=== PATIENT | female | born 1990 | race Caucasian/White ===

== ENCOUNTER 2017-04-26 18:36 | Emergency (ER) | payer BC, OTHER ==
[2017-04-26 18:46] VITALS: TEMP 97.9; O2SAT 99
--- NOTE | 2017-04-26 18:49 | EDPHY ---
H & P Stated Complaint: etoh last night/anxiety nausea today Time Seen by Provider: 04/26/17 18:48 HPI/ROS: CHIEF COMPLAINT: Vomiting, anxiety HISTORY OF PRESENT ILLNESS: The patient presents to the ED with a 1 day history of vomiting and anxiety. The patient reports her symptoms were precipitated by drinking alcohol last night. She denies significant abdominal pain. She denies any hematemesis or melena. She does have a history of anxiety but does not take medications for this condition. The patient denies any complaints of fever, cough, congestion or dysuria. The patient states that her symptoms of anxiety are moderate in nature. REVIEW OF SYSTEMS: A comprehensive 10 point review of systems is otherwise negative aside from elements mentioned in the history of present illness. Source: Patient Exam Limitations: No limitations - Personal History LMP (Females 10-55): IUD In Place Current Tetanus/Diphtheria Vaccine: No - Medical/Surgical History Hx Asthma: No Hx Chronic Respiratory Disease: No Hx Diabetes: No Hx Cardiac Disease: No Hx Renal Disease: No Hx Cirrhosis: No Hx Alcoholism: No Hx HIV/AIDS: No Hx Splenectomy or Spleen Trauma: No Other PMH: anxiety - Social History Smoking Status: Current some day smoker - Physical Exam Exam: General Appearance: Alert, no distress Eyes: Pupils equal and round no pallor or injection ENT, Mouth: Dry mucous membranes Respiratory: There are no retractions, lungs are clear to auscultation Cardiovascular: Tachycardic Gastrointestinal: Minimal epigastric tenderness Neurological: A&O, normal motor function, normal sensory exam, normal cranial nerves Skin: Warm and dry, no rashes Musculoskeletal: Neck is supple nontender Extremities: symmetrical, full range of motion Psychiatric: Patient is oriented X 3, there is no agitation, anxious and hyperventilating Constitutional: Initial Vital Signs Temperature (C) 36.6 C 04/26/17 18:44 Heart Rate 118 H 04/26/17 18:44 Respiratory Rate 22 H 04/26/17 18:44 Blood Pressure 119/91 H 04/26/17 18:44 O2 Sat (%) 99 04/26/17 18:44 O2 Delivery Mode Room Air Allergies/Adverse Reactions: Sulfa (Sulfonamide Antibiotics) Allergy (Verified 04/26/17 18:43) Home Medications: Medication Instructions Recorded Janice 04/26/17 Medical Decision Making ED Course/Re-evaluation: The patient presents to the ED with vomiting and anxiety in the setting of recent alcohol use. The patient was clinically dehydrated upon arrival with dry mucous membranes and tachycardia. This is confirmed reflected in her low carbon dioxide of 12. The patient has a benign abdominal examination. She had an IV established. She received 2 L of normal saline, 4 mg of IV Zofran and 1 mg of IV Ativan. I re-evaluated the patient at 8:10 p.m.. She is currently feeling much better and has no acute complaints. Her abdominal examination is benign. She is tolerating p.o. without recurrent nausea and vomiting. The patient will be discharged home without further workup. She is given customary aftercare instructions and return precautions. Differential Diagnosis: Differential diagnosis considered includes alcoholic gastritis, dehydration, anxiety, metabolic abnormality, pancreatitis - Data Points Laboratory Results: Laboratory Results 04/26/17 19:00 04/26/17 19:00 04/26/17 04/26/17 04/26/17 19:00 19:00 19:00 WBC 16.15 10^3/uL H 10^3/uL (3.80-9.50) RBC 5.15 10^6/uL 10^6/uL (4.18-5.33) Hgb 15.6 g/dL g/dL (12.6-16.3) Hct 43.0 % % (38.0-47.0) MCV 83.5 fL fL (81.5-99.8) MCH 30.3 pg pg (27.9-34.1) MCHC 36.3 g/dL g/dL (32.4-36.7) RDW 11.4 % L % (11.5-15.2) Plt Count 329 10^3/uL 10^3/uL (150-400) MPV 8.4 fL L fL (8.7-11.7) Neut % (Auto) 88.0 % H % (39.3-74.2) Lymph % (Auto) 7.9 % L % (15.0-45.0) [place] % (Auto) 2.8 % L % (4.5-13.0) Eos % (Auto) 0.2 % L % (0.6-7.6) Baso % (Auto) 0.6 % % (0.3-1.7) Nucleat RBC Rel Count 0.0 % % (0.0-0.2) Absolute Neuts (auto) 14.22 10^3/uL H 10^3/uL (1.70-6.50) Absolute Lymphs (auto) 1.27 10^3/uL 10^3/uL (1.00-3.00) Absolute Monos (auto) 0.45 10^3/uL 10^3/uL (0.30-0.80) Absolute Eos (auto) 0.03 10^3/uL 10^3/uL (0.03-0.40) Absolute Basos (auto) 0.10 10^3/uL 10^3/uL (0.02-0.10) Absolute Nucleated RBC 0.00 10^3/uL 10^3/uL (0-0.01) Immature Gran % 0.5 % % (0.0-1.1) Immature Gran # 0.08 10^3/uL 10^3/uL (0.00-0.10) Sodium 143 mEq/L mEq/L (134-144) Potassium 4.4 mEq/L mEq/L (3.5-5.2) Chloride 103 mEq/L mEq/L (97-110) Carbon Dioxide 12 mEq/l L mEq/l (22-31) Anion Gap 28 mEq/L H mEq/L (8-16) BUN 9 mg/dL mg/dL (7-23) Creatinine 0.6 mg/dL mg/dL (0.6-1.0) Estimated GFR > 60 Glucose 102 mg/dL H mg/dL (70-100) Calcium 10.7 mg/dL H mg/dL (8.5-10.4) Phosphorus 2.6 mg/dL mg/dL (2.5-4.5) Beta HCG, Qual NEGATIVE Medications Given: Discontinued Medications Sodium Chloride (Ns) 1,000 mls @ 0 mls/hr IV EDNOW ONE; Wide Open PRN Reason: Protocol Stop: 04/26/17 18:52 Last Admin: 04/26/17 19:00 Dose: 1,000 mls Sodium Chloride (Ns) 1,000 mls @ 0 mls/hr IV EDNOW ONE; Wide Open PRN Reason: Protocol Stop: 04/26/17 18:52 Last Admin: 04/26/17 19:02 Dose: Not Given Lorazepam (Ativan Injection) 1 mg IVP EDNOW ONE Stop: 04/26/17 18:52 Last Admin: 04/26/17 19:01 Dose: 1 mg Departure - Departure Disposition: Home, Routine, Self-Care Clinical Impression: Vomiting, Dehydration, Anxiety Condition: Good Instructions: Acute Nausea and Vomiting (ED) Additional Instructions: 1. Return to the ED for any pain, intractable vomiting or other concerns. Referrals: NONE *PRIMARY CARE P,. [Primary Care Provider] - As per Instructions
[2017-04-26] MEDS ORDERED: LORazepam 2 MG/ML INJ IVP ONE (18:51)
[2017-04-26] MEDS ORDERED: NS 1,000 ML IV ONE (18:51)
[2017-04-26] MEDS: NS 1,000 ML IV ONE (19:00)
[2017-04-26 19:10] LABS: PLATELET COUNT 329 10^3/uL (150-400)
[2017-04-26 19:54] VITALS: BP 119/65; PULSE 112; RESP 18
== END 2017-04-26 20:18 | disposition home or self-care (01) ==
DX: R11.10 Vomiting, unspecified (principal); E86.0 Dehydration; F41.9 Anxiety disorder, unspecified; F17.200 Nicotine dependence, unspecified, uncomplicated; E86.9 Volume depletion, unspecified
CPT/HCPCS: 96374; J2060

== ENCOUNTER 2018-08-31 07:09 | Emergency (ER) | payer BC ==
--- NOTE | 2018-08-31 07:26 | EDPHY ---
H & P Time Seen by Provider: 08/31/18 07:25 HPI/ROS: CHIEF COMPLAINT: Nausea and anxiety HISTORY OF PRESENT ILLNESS: Patient is seen here for similar on 04/26/2017. She has been seen since then at [facility] for similar. Her friend who is here with her relates that she had been drinking alcohol last night until about midnight, since about 3:30 a.m. She has had anxiety and nausea and vomiting and hyperventilation not helped by talking to her. Seems identical to previous episodes. Patient denies diarrhea or abdominal pain. No hematemesis or coffee-ground emesis. Symptoms severe. Not associated with shortness of breath. REVIEW OF SYSTEMS: Eye: no change in vision ENT: no sore throat Cardiac: no chest pain or syncope Pulmonary: no cough or SOB Abdomen: HPI Musculoskeletal: no back pain Skin: no rash Neuro: no headache Constitutional: no fever : no urinary symptoms A comprehensive 10 point review of systems is otherwise negative aside from elements mentioned in the history of present illness. PAST MEDICAL HISTORY: No previous abdominal surgeries, denies Social history: Alcohol last night General Appearance: Alert and conversant, cooperative. Eyes: No scleral icterus. ENT, Mouth: Dry mucous membranes. Respiratory: Normal respiratory effort, breath sounds equal, lungs are clear to auscultation. Cardiovascular: Regular rate and rhythm. Gastrointestinal: Abdomen is soft and non tender. Neurological: Alert, face symmetric, normal motor and sensory in extremities. Skin: Warm and dry, no rashes. Musculoskeletal: No peripheral edema. Psychiatric: Moderately anxious and hyperventilating. Emergency Department course/MDM: Normal saline 1 L, IV Ativan 1 mg, CBC chemistry . Temperature 36 degrees. 840: Sleeping quietly, no further vomiting, appears calm. 921: Easily awakened, taking oral fluids, less anxious, no further vomiting. Smoking Status: Current some day smoker Constitutional: Initial Vital Signs Heart Rate 131 H 08/31/18 07:13 Respiratory Rate 30 H 08/31/18 07:13 Blood Pressure 115/83 H 08/31/18 07:13 O2 Sat (%) 97 08/31/18 07:13 O2 Delivery Mode Room Air Allergies/Adverse Reactions: Sulfa (Sulfonamide Antibiotics) Allergy (Verified 08/31/18 07:12) Home Medications: Medication Instructions Recorded Unobtainable 08/31/18 Medical Decision Making Differential Diagnosis: Differential diagnosis considered for nausea and vomiting including but not limited to gastroenteritis, gastritis, appendicitis, and medication side effect. - Data Points Laboratory Results: Laboratory Results 08/31/18 07:45 08/31/18 07:45 08/31/18 08/31/18 08/31/18 07:45 07:45 07:45 WBC 10.04 10^3/uL H 10^3/uL (3.80-9.50) RBC 5.48 10^6/uL H 10^6/uL (4.18-5.33) Hgb 16.7 g/dL H g/dL (12.6-16.3) Hct 47.2 % H % (38.0-47.0) MCV 86.1 fL fL (81.5-99.8) MCH 30.5 pg pg (27.9-34.1) MCHC 35.4 g/dL g/dL (32.4-36.7) RDW 12.8 % % (11.5-15.2) Plt Count 270 10^3/uL 10^3/uL (150-400) MPV 8.2 fL L fL (8.7-11.7) Neut % (Auto) 75.7 % H % (39.3-74.2) Lymph % (Auto) 17.1 % % (15.0-45.0) [place] % (Auto) 1.9 % L % (4.5-13.0) Eos % (Auto) 3.8 % % (0.6-7.6) Baso % (Auto) 0.9 % % (0.3-1.7) Nucleat RBC Rel Count 0.0 % % (0.0-0.2) Absolute Neuts (auto) 7.60 10^3/uL H 10^3/uL (1.70-6.50) Absolute Lymphs (auto) 1.72 10^3/uL 10^3/uL (1.00-3.00) Absolute Monos (auto) 0.19 10^3/uL L 10^3/uL (0.30-0.80) Absolute Eos (auto) 0.38 10^3/uL 10^3/uL (0.03-0.40) Absolute Basos (auto) 0.09 10^3/uL 10^3/uL (0.02-0.10) Absolute Nucleated RBC 0.00 10^3/uL 10^3/uL (0-0.01) Immature Gran % 0.6 % % (0.0-1.1) Immature Gran # 0.06 10^3/uL 10^3/uL (0.00-0.10) Sodium 145 mEq/L mEq/L (135-145) Potassium 4.3 mEq/L mEq/L (3.5-5.2) Chloride 109 mEq/L mEq/L (97-110) Carbon Dioxide 13 mEq/l L mEq/l (22-31) Anion Gap 23 mEq/L H mEq/L (6-14) BUN 13 mg/dL mg/dL (7-23) Creatinine 0.7 mg/dL mg/dL (0.6-1.0) Estimated GFR > 60 Glucose 72 mg/dL mg/dL (70-100) Calcium 9.9 mg/dL mg/dL (8.5-10.4) Beta HCG, Qual NEGATIVE Medications Given: Discontinued Medications Sodium Chloride (Ns) 1,000 mls @ 0 mls/hr IV EDNOW ONE; Wide Open PRN Reason: Protocol Stop: 08/31/18 07:32 Last Admin: 08/31/18 07:54 Dose: 1,000 mls Lorazepam (Ativan Injection) 1 mg IVP EDNOW ONE Stop: 08/31/18 07:32 Last Admin: 08/31/18 07:54 Dose: 1 mg Departure - Departure Disposition: Home, Routine, Self-Care Clinical Impression: Anxiety Nausea and vomiting Qualifiers: Vomiting type: unspecified Vomiting Intractability: non-intractable Qualified Code(s): R11.2 - Nausea with vomiting, unspecified Condition: Good Instructions: Generalized Anxiety Disorder (ED), Acute Nausea and Vomiting (ED) Referrals: Moiéss Pope MD [Primary Care Provider] - As per Instructions
[2018-08-31] MEDS ORDERED: NS 1,000 ML IV ONE (07:31)
[2018-08-31] MEDS ORDERED: LORazepam 2 MG/ML INJ IVP ONE (07:31)
[2018-08-31 07:56] LABS: PLATELET COUNT 270 10^3/uL (150-400)
[2018-08-31 09:15] VITALS: BP 100/60
== END 2018-08-31 09:31 | disposition home or self-care (01) ==
DX: F41.1 Generalized anxiety disorder (principal); R11.2 Nausea with vomiting, unspecified; E86.9 Volume depletion, unspecified; F17.200 Nicotine dependence, unspecified, uncomplicated
CPT/HCPCS: 96374; J2060

== ENCOUNTER 2018-09-13 10:30 | Emergency (ER) | payer BC ==
--- NOTE | 2018-09-13 10:39 | EDPHY ---
General Time Seen by Provider: 09/13/18 10:39 Narrative: CLINICAL IMPRESSION: Anxiety, nausea, vomiting ASSESSMENT/PLAN: Patient is a 27 year old female with a significant medical history of anxiety who presents to the emergency department with complaints of increased anxiety, nausea, vomiting and generalized abdominal pain. Patient is afebrile, she is hyperventilating, crying and visibly upset. Patient clinically dehydrated on arrival with dry mucous membranes and tachycardia, patient was given a L of IV fluids and Ativan with improvement of her symptoms. CBC revealed no evidence of leukocytosis or significant anemia, negative. BMP with low CO2 at 11, I suspect this is directly related to her hyperventilation. The patient had a market improvement of her symptoms after IV rehydration, Ativan and antiemetic. She was able to tolerate p.o.. On repeat exam her abdomen was benign, no imaging indicated. She reports feeling much better, her vital signs normalized. There were no findings to suggest sepsis, medication side effect, thyrotoxicosis, severe dehydration, or hypoglycemia. Case management visited with Patient, her therapist was consulted and will reach out to the patient. She has had several episodes very similar in the past, several directly related after alcohol use. Discussed alcohol cessation and overall stress reduction. Patient will follow up with PCP and therapist. Return precautions discussed. Basic metabolic panel with low CO2 consistent with hyperventilation. CBC within normal limits, negative. TSH within normal limits. DIFFERENTIAL DX: Differential diagnosis includes but not limited to anxiety, medication side effect, medication noncompliance, thyrotoxicosis, dehydration, hypoglycemia ED COURSE: 1130: On repeat examination the patient is much more comfortable appearing. Heart rate is 98. Case management is visiting with the patient, we will reach out to her primary care provider to ensure follow-up and appropriate case management needs for continuing therapy. She reports that she is feeling much less anxious. She is no longer tearful or agitated. She has had no further vomiting however still feels mildly nauseous. She denies any further abdominal pain, her abdomen is soft, I am unable to elicit any tenderness to palpation. Patient also endorses at this time that she is under significant amount of stress at both work and with school. She has had several visits to the emergency department and urgent care, 1 was a panic attack and the others were related to alcohol use. Patient does report an episode earlier this week where she was drinking on this also exacerbated her anxiety. Not seen or evaluated at this time. We discussed the importance of alcohol cessation as this may be contributing to her underlying exacerbations. 1154: PDMP reviewed, no active prescriptions for narcotics or benzodiazepines. Case discussed with Dr. Ozuna. 1215: Gisela with case management was able to contact patient's therapist, her therapist will reach out to her to schedule follow-up. 1223: On repeat examination the patient reports she is feeling so much better, heart rate is 91. She denies any further feelings of severe anxiety. She denies any further nausea, has had no more emesis and denies any abdominal pain. She has no other concerns or complaints. She is comfortable with outpatient follow-up plan. CHIEF COMPLAINT: Anxiety, nausea and vomiting HPI: Patient is a 27-year-old female with a significant history of underlying anxiety who presents to the Emergency Department with sudden-onset anxiety, nausea and multiple episodes of emesis since 2:00 a.m.. Patient reports similar episodes in the past with exact same symptoms. Patient reports last night she drank several beers. She went to sleep and had a sudden awakening at 2:00 a.m. Feeling very anxious. She suddenly started to develop nausea and multiple episodes of vomiting. She denies any hematemesis or diarrhea. She reports generalized abdominal discomfort which she believes is secondary to multiple episodes of emesis. She denies any chest pain or shortness of breath. She denies any recent fever, chills, upper respiratory illness or cough. She denies any known triggers however last episode was after drinking alcohol as well. Patient seen and evaluated twice in the emergency department and at urgent care for similar symptoms. She is followed regularly by her PCP, sees her psychologist monthly. She is currently on Zoloft, recent increase in her Zoloft 1 month ago. PMH: Generalized anxiety Pertinent Past Surgical History: Denies Family History: Not contributory Social History: Occasional alcohol, occasional cigarette smoking. Denies illicit drug use REVIEW OF SYSTEMS: All other systems negative Constitutional: No fever, no chills, appetite change. Eyes: No discharge, vision change ENT: No sore throat, congestion, ear pain. Cardiovascular: No chest pain, no palpitations. Respiratory: No cough, no shortness of breath. Gastrointestinal: Nausea, vomiting, generalized abdominal pain. Genitourinary: No hematuria, dysuria, flank pain. Musculoskeletal: No back pain, joint swelling, joint pain, myalgias. Skin: No rashes, color change. Neurological: No headache, dizziness, weakness. PHYSICAL EXAM: General Appearance: Patient is crying, hyperventilating however not toxic- appearing. HENT: Normocephalic, atraumatic. Bilateral external ears are normal. Bilateral tympanic membranes are normal with pearly gonzalez reflex. Nares are clear, mucosa is pink. Oropharynx is clear however mucosa is very dry, uvula is midline. There is no tonsillar enlargement or exudate. The dentition is normal. Eyes: PERRLA, EOMI. Conjunctiva pink, no pallor or injection. Neck: Supple, nontender, no lymphadenopathy, no midline pain, FROM. Respiratory: There are no retractions, lungs are clear to auscultation. Cardiac: Tachycardic, on my exam heart rate is 110, no murmurs or gallops. Gastrointestinal: Abdomen is soft and nondistended. She has diffuse, nonfocal tenderness to palpation. There is no rigidity, guarding or focal peritoneal findings. No masses or hernias appreciated. Bowel sounds are present. Neurological: Alert and oriented x 3, CN 2-12 grossly intact, normal sensation and strength Skin: Warm, dry, no rashes, no nodules on palpation. Musculoskeletal: Extremities are symmetrical, full range of motion, no tenderness, deformity, swelling, or erythema. Psychiatric: Anxious, tearful, easily excitable. MEDICAL DECISION MAKING: Patient was seen independently. Secondary supervising physician at time of evaluation was Dr. Ozuna. Diagnosis: Nausea, vomiting, anxiety. Summary: See Assessment and Plan for summary of ED visit Clinical lab tests: ordered / reviewed. Independent visualization of images, tracing, or specimens: Not applicable. Decision to obtain medical records or history from someone other than the patient: No Review / Summarize previous medical records: Yes Discussed patient with another provider: Yes Patient Progress: Stable, discharge. - History Smoking Status: Current some day smoker - Objective Vital Signs: Initial Vital Signs Temperature (C) 36.4 C 09/13/18 10:33 Heart Rate 130 H 09/13/18 10:33 Respiratory Rate 18 09/13/18 10:33 Blood Pressure 138/100 H 09/13/18 10:33 O2 Sat (%) 97 09/13/18 10:33 O2 Delivery Mode Room Air Allergies/Adverse Reactions: Sulfa (Sulfonamide Antibiotics) Allergy (Verified 09/13/18 10:36) Home Medications: Medication Instructions Recorded Zoloft 25mg (*) 09/13/18 Laboratory Results: Laboratory Results 09/13/18 11:02 09/13/18 11:02 09/13/18 09/13/18 11:02 11:02 WBC 8.19 10^3/uL 10^3/uL (3.80-9.50) RBC 5.57 10^6/uL H 10^6/uL (4.18-5.33) Hgb 16.9 g/dL H g/dL (12.6-16.3) Hct 46.9 % % (38.0-47.0) MCV 84.2 fL fL (81.5-99.8) MCH 30.3 pg pg (27.9-34.1) MCHC 36.0 g/dL g/dL (32.4-36.7) RDW 13.0 % % (11.5-15.2) Plt Count 371 10^3/uL 10^3/uL (150-400) MPV 8.1 fL L fL (8.7-11.7) Neut % (Auto) 69.7 % % (39.3-74.2) Lymph % (Auto) 19.9 % % (15.0-45.0) [place] % (Auto) 4.4 % L % (4.5-13.0) Eos % (Auto) 4.0 % % (0.6-7.6) Baso % (Auto) 1.6 % % (0.3-1.7) Nucleat RBC Rel Count 0.0 % % (0.0-0.2) Absolute Neuts (auto) 5.71 10^3/uL 10^3/uL (1.70-6.50) Absolute Lymphs (auto) 1.63 10^3/uL 10^3/uL (1.00-3.00) Absolute Monos (auto) 0.36 10^3/uL 10^3/uL (0.30-0.80) Absolute Eos (auto) 0.33 10^3/uL 10^3/uL (0.03-0.40) Absolute Basos (auto) 0.13 10^3/uL H 10^3/uL (0.02-0.10) Absolute Nucleated RBC 0.00 10^3/uL 10^3/uL (0-0.01) Immature Gran % 0.4 % % (0.0-1.1) Immature Gran # 0.03 10^3/uL 10^3/uL (0.00-0.10) Sodium 142 mEq/L mEq/L (135-145) Potassium 4.3 mEq/L mEq/L (3.5-5.2) Chloride 106 mEq/L mEq/L (97-110) Carbon Dioxide 15 mEq/l L mEq/l (22-31) Anion Gap 21 mEq/L H mEq/L (6-14) BUN 9 mg/dL mg/dL (7-23) Creatinine 0.6 mg/dL mg/dL (0.6-1.0) Estimated GFR > 60 Glucose 96 mg/dL mg/dL (70-100) Calcium 10.8 mg/dL H mg/dL (8.5-10.4) Phosphorus 2.4 mg/dL L mg/dL (2.5-4.5) TSH 1.620 uIU/mL uIU/mL (0.465-4.680) Beta HCG, Quant < 2.39 mIU/mL mIU/mL (0.00-4.83) Medications Given: Discontinued Medications Sodium Chloride (Ns) 1,000 mls @ 0 mls/hr IV EDNOW ONE; Wide Open PRN Reason: Protocol Stop: 09/13/18 10:51 Last Admin: 09/13/18 11:04 Dose: 1,000 mls Lorazepam (Ativan Injection) 1 mg IVP EDNOW ONE Stop: 09/13/18 10:52 Last Admin: 09/13/18 11:04 Dose: 1 mg Ondansetron HCl (Zofran) 4 mg IVP EDNOW ONE Stop: 09/13/18 10:51 Last Admin: 09/13/18 11:04 Dose: 4 mg Departure - Departure Disposition: Home, Routine, Self-Care Clinical Impression: Anxiety Nausea & vomiting Qualifiers: Vomiting type: unspecified Vomiting Intractability: non-intractable Qualified Code(s): R11.2 - Nausea with vomiting, unspecified Condition: Good Instructions: Anxiety (ED) Additional Instructions: DISCHARGE INSTRUCTIONS FROM YOUR PROVIDER Thank you for visiting our emergency department today. Please keep in mind that discharge from the emergency department does not mean that there is nothing wrong - it simply means that we have not identified an emergency condition that requires further evaluation or treatment in the hospital. You should always plan to follow up with primary care for re-evaluation of your condition in the next 1-2 days. Rest, healthy/regular sleep schedule, push fluids, healthy diet, regular exercise. Attempt to reduce stress. Pursue pleasurable, healthy activities. Surround yourself with loving, supportive, healthy friends and family. Stop smoking as soon as possible. Avoid drugs and alcohol. Return for increased or unmanageable anxiety, severe depression, thoughts or plans to hurt yourself or someone else, for chest pain, shortness of breath, dizziness, fainting, rapid or irregular heart beat, sweating, vomiting, abdominal pain, back pain, tremor, seizure, mental status changes, or for any other new, worsening or worrisome symptoms. People present with illnesses and injuries in different ways, and it is always possible that we have missed something. Again, thank you for choosing our emergency department. We hope that you feel better. Referrals: Moisés Pope MD [Primary Care Provider] - 1-2 days without fail
[2018-09-13] MEDS ORDERED: NS 1,000 ML IV ONE (10:50)
[2018-09-13] MEDS ORDERED: ONDANSETRON 4 MG/2 ML VIAL IVP ONE (10:50)
[2018-09-13] MEDS ORDERED: LORazepam 2 MG/ML INJ IVP ONE (10:51)
[2018-09-13 11:16] LABS: PLATELET COUNT 371 10^3/uL (150-400)
[2018-09-13 12:39] VITALS: BP 110/77
--- NOTE | 2018-09-13 15:03 | ASMTCMCOM ---
CM Note CM Note Notes: CM asked to see patient regarding return ER visit and follow up care. Chart reviewed. Patient has presented to the ER twice within the past 2 weeks with c/o anxiety. See ER reports (09/13 and 08/31) for details. Patient is alert, pleasant, and communicative when I met with her. She is open with sharing her history of anxiety and is followed by a PCP and psychologist at [facility]. Patient has an appointment scheduled with her psychologist on October 04 but would like to get in to see her sooner if possible. I offered to reach out to patient"s PCP and/or psychologist regarding ER follow up and patient is open to this. Patient's PCP is Dr. Moisés Pope at [facility] in [place]. Her psychologist is Dr. Shipley in the same office. I was able to contact Dr. Shipley and discussed follow up plans and patient's desire to get in to see her sooner. Dr. Shipley states that she will contact patient directly today. Dr. Shipley also informed this CM that patient missed her last scheduled appointment on September 01 and that patient did call to cancel that appointment. PLAN: Dr. Shipley will reach out to patient today regarding scheduling follow up care. Patient is in agreement with this plan. This CM discussed and provided resources for the [facility] crisis center and encouraged patient to use this resource at any time. Patient is able to identify healthy coping skills such as exercise, deep breathing, etc. and denies any use or history of drugs to treat her anxiety. Patient does acknowledge that her recent and current ER visits were precipitated after drinking "a couple of beers" and patient recognizes that she may need to evaluate the relationship of her anxiety/alcohol consumption. With patient's permission this CM has faxed patient's ER report(s) to Violetta Frank at [facility] CM available for further needs prn Date Signed: 09/13/2018 03:02 PM Electronically Signed By:Gisela Mcghee RN
== END 2018-09-13 12:43 | disposition home or self-care (01) ==
DX: F41.9 Anxiety disorder, unspecified (principal); R11.2 Nausea with vomiting, unspecified; E86.9 Volume depletion, unspecified
CPT/HCPCS: 96374; J2060; J2405

== ENCOUNTER 2018-10-03 00:25 | Emergency (ER) | payer BC, OTHER | END 2018-10-03 01:11 | disposition home or self-care (01) ==